=== PATIENT | male | born 1975 | race Caucasian/White ===

== ENCOUNTER 2016-07-14 17:35 | Emergency (ER) | payer MEDICARE, MEDICAID | END 2016-07-14 22:20 | disposition home or self-care (01) | LOC: D.ER 17:35 | DX: Z76.0 Encounter for issue of repeat prescription (principal); F41.9 Anxiety disorder, unspecified; F32.9 Major depressive disorder, single episode, unspecified; I10 Essential (primary) hypertension; F43.10 Post-traumatic stress disorder, unspecified ==

== ENCOUNTER 2016-08-19 04:58 | Emergency (ER) | payer MEDICARE, MEDICAID | END 2016-08-19 05:33 | disposition home or self-care (01) | LOC: D.ER 04:58 | DX: F41.9 Anxiety disorder, unspecified (principal); F32.9 Major depressive disorder, single episode, unspecified; I10 Essential (primary) hypertension; F43.10 Post-traumatic stress disorder, unspecified ==

== ENCOUNTER 2017-10-24 14:58 | Emergency (ER) | payer MEDICARE ==
[~2017-10-24] VITALS: Ht 172.7 cm; Wt 79.5 kg
[2017-10-24 15:03] VITALS: Ht 172.7 cm; Wt 79.5 kg
[2017-10-24] MEDS ORDERED: KLONOPIN1 MG PO (15:04)
[2017-10-24] MEDS ORDERED: HYDROCHLOROTH12.5 M1 PO (15:04)
[2017-10-24] MEDS ORDERED: ZOLOFT100 MG PO (15:04)
[2017-10-24] MEDS ORDERED: CLEOCIN HCL300 MG PO (15:56)
[2017-10-24] MEDS ORDERED: TORADOL10 MG PO (15:56)
[2017-10-24 16:25] VITALS: BP 123/83
== END 2017-10-24 16:40 | disposition home or self-care (01) ==
LOC: D.ER 14:58
DX: K02.9 Dental caries, unspecified (principal); K08.89 Other specified disorders of teeth and supporting structures; R50.9 Fever, unspecified; I10 Essential (primary) hypertension; F17.200 Nicotine dependence, unspecified, uncomplicated